=== PATIENT | female | born 1955 | race Caucasian/White ===

== ENCOUNTER 2020-09-13 10:43 | Outpatient (REF) | payer MEDICAID, SELFPAY ==
--- NOTE | 2020-09-13 09:30 | PAPFT_PTH ---
PATIENT: Snehal Sevilla LOC: [facility]#:[id number] AGE/SX: 65/F ROOM: RE09/13/[address]: Miriam Arthur : 1955 BED: DIS: 09/13/2020 SPEC #: [id number] RECD: 09/14/20 12:00 STATUS: DALILA REIbis #: [id number] EBONI: 09/13/20 09:[address]: Miriam Arthur DEPT: [facility] Cytology RECD BY: Sepideh Nguyen Tissues: 1 - CX/ENDOCX FOR PAP SMEARS Procedures: PAP THIN PREP/[facility] Screening HPV DNA PROBE Comments: [id number]
== END 2020-09-13 11:03 ==
LOC: NCHCN 10:43
PROVIDERS: PCP Registered Nurse; Visit Provider Registered Nurse
DX: Z12.4 Encounter for screening for malignant neoplasm of cervix (principal); Z11.51 Encounter for screening for human papillomavirus (HPV)
CPT/HCPCS: 88142; 87624

== ENCOUNTER 2021-11-15 15:17 | Outpatient (REF) | payer MEDICARE, MEDICAID, SELFPAY ==
[2021-11-15 21:07] LABS: HCT 43.2 % (36.0-46.0); HGB 13.8 g/dL (11.2-15.7); MCH 29.9 pg (27.0-33.0); MCHC 31.9 % (32.0-36.0); MCV 93.5 fL (80-95); MPV 10.4 fL (8.0-11.0); Platelet Count 241 10^3/uL (130-400); RBC 4.62 10^6/uL (3.93-5.22); RDW 13.3 % (11.7-14.6); RDW-SD 45.4 fL
[2021-11-15 21:16] LABS: ALT 64 U/L (14-59); AST 40 U/L (15-37); Albumin 3.8 g/dL (3.4-5.0); Alkaline Phosphatase 130 U/L (46-116); Anion Gap 6.6 mmol/L (3-11); BUN 9 mg/dL (7-18); Bilirubin, Total 0.5 mg/dL (0.2-1.0); CO2 29.4 mmol/L (21.0-32.0); CREATININE 0.8 mg/dL (0.55-1.02); Calcium 8.5 mg/dL (8.5-10.1); Calculated LDL 73 mg/dL (<100); Chloride 107 mmol/L (98-107); Cholesterol 154 mg/dL (<200); Glucose 105 mg/dL (74-106); HDL Cholesterol 62 mg/dL (40-60); Magnesium 2.2 mg/dL (1.8-2.4); Sodium 143 mmol/L (136-145); TSH 1.87 uIU/mL (0.36-3.74); Total Protein 6.6 g/dL (6.4-8.2); Triglyceride 97 mg/dL (<150)
[2021-11-15 21:30] LABS: Hemoglobin A1C 5.2 % (<5.7)
== END 2021-11-15 15:18 | disposition home or self-care (01) ==
LOC: NCHCN 15:17
PROVIDERS: PCP Registered Nurse; Visit Provider Registered Nurse
DX: R07.9 Chest pain, unspecified (principal); Z83.3 Family history of diabetes mellitus; Z13.220 Encounter for screening for lipoid disorders; Z13.228 Encounter for screening for other metabolic disorders
CPT/HCPCS: 80053; 80061; 85027; 83036; 83735; 84443

== ENCOUNTER 2021-12-10 14:43 | Outpatient (REF) | payer MEDICARE, MEDICAID, SELFPAY ==
[2021-12-10 15:47] LABS: ALT 81 U/L (14-59); AST 49 U/L (15-37); Albumin 4.1 g/dL (3.4-5.0); Alkaline Phosphatase 144 U/L (46-116); Bilirubin, Direct 0.2 mg/dL (0.0-0.2); Bilirubin, Total 0.6 mg/dL (0.2-1.0); Total Protein 7.1 g/dL (6.4-8.2)
[2021-12-11 10:46] LABS: Hepatitis B Surface Ag Negative (Negative)
[2021-12-11 10:53] LABS: HBs Antibody, Quant 12.9 mIU/mL (See Note); Hepatitis B Surface Ab Positive (See Note)
[2021-12-11 11:08] LABS: Hepatitis C Ab w Rflx HCV PCR Negative (Negative)
[2021-12-11 11:19] LABS: Hep B Core Antibody Negative (Negative)
== END 2021-12-10 14:44 | disposition home or self-care (01) ==
LOC: NCHCN 14:43
PROVIDERS: PCP Registered Nurse; Visit Provider Registered Nurse
DX: R79.89 Other specified abnormal findings of blood chemistry (principal)
CPT/HCPCS: 80076; 86704; 86706; 86803; 87340

== ENCOUNTER 2022-11-28 17:37 | Outpatient (REF) | payer MEDICARE, MEDICAID, SELFPAY ==
[2022-11-28 15:40] LABS: ALT 130 U/L (14-59); AST 109 U/L (15-37); Alkaline Phosphatase 153 U/L (46-116); Anion Gap 6.1 mmol/L (3-11); BUN 11 mg/dL (7-18); Bilirubin, Total 0.7 mg/dL (0.2-1.0); CO2 28.9 mmol/L (21.0-32.0); CREATININE 0.7 mg/dL (0.55-1.02); Calcium 8.8 mg/dL (8.5-10.1); Chloride 105 mmol/L (98-107); Estimated GFR 95.32 (mL/min/1.73m2); Glucose 87 mg/dL (74-106); Potassium 4.7 mmol/L (3.5-5.1); Sodium 140 mmol/L (136-145); Total Protein 7.8 g/dL (6.4-8.2)
== END 2022-11-28 17:38 | disposition home or self-care (01) ==
LOC: NCHCN 17:37
PROVIDERS: PCP Registered Nurse; Visit Provider Registered Nurse
DX: R79.89 Other specified abnormal findings of blood chemistry (principal); K21.9 Gastro-esophageal reflux disease without esophagitis; F17.210 Nicotine dependence, cigarettes, uncomplicated; J44.9 Chronic obstructive pulmonary disease, unspecified; G45.9 Transient cerebral ischemic attack, unspecified
CPT/HCPCS: 80053

== ENCOUNTER 2022-12-09 12:52 | Outpatient (REF) | payer MEDICARE, MEDICAID, SELFPAY ==
[2022-12-09 15:00] LABS: HCT 42.7 % (36.0-46.0); HGB 13.7 g/dL (11.2-15.7); MCH 30.4 pg (27.0-33.0); MCHC 32.1 % (32.0-36.0); MCV 95 fL (80-95); MPV 10.4 fL (8.0-11.0); Platelet Count 191 10^3/uL (130-400); RDW 13.5 % (11.7-14.6); RDW-SD 47.6 fL; WBC 6.84 10^3/uL (4.4-10.8)
[2022-12-09 15:24] LABS: Iron 98 ug/dL (50-170); Total Iron Binding Capacity 351 ug/dL (250-450)
[2022-12-11 19:21] LABS: Ferritin 41 ng/mL (10-291)
== END 2022-12-09 12:53 | disposition home or self-care (01) ==
LOC: NCHCN 12:52
PROVIDERS: PCP Registered Nurse; Visit Provider Registered Nurse
DX: R79.89 Other specified abnormal findings of blood chemistry (principal); Z13.0 Encounter for screening for diseases of the blood and blood-forming organs and certain disorders involving the immune mechanism
CPT/HCPCS: 85027; 82728; 83540; 83550

== ENCOUNTER 2023-01-13 15:41 | Outpatient (REF) | payer MEDICARE, MEDICAID, SELFPAY ==
[2023-01-13 15:03] LABS: ALT 32 U/L (14-59); AST 33 U/L (15-37); Albumin 3.9 g/dL (3.4-5.0); Alkaline Phosphatase 116 U/L (46-116); Anion Gap 5.8 mmol/L (3-11); BUN 8 mg/dL (7-18); Bilirubin, Total 0.6 mg/dL (0.2-1.0); CO2 29.2 mmol/L (21.0-32.0); CREATININE 0.8 mg/dL (0.55-1.02); Calcium 9.1 mg/dL (8.5-10.1); Chloride 102 mmol/L (98-107); Estimated GFR 81.21 (mL/min/1.73m2); Glucose 95 mg/dL (74-106); Potassium 4.1 mmol/L (3.5-5.1); Sodium 137 mmol/L (136-145); Total Protein 7.4 g/dL (6.4-8.2)
[2023-01-14 09:36] LABS: IgG 1231 mg/dL (610-1616)
[2023-01-14 21:56] LABS: Mitochondrial Ab, M2 <0.1 U
[2023-01-15 13:04] LABS: Smooth Muscle Ab Screen Negative (Negative)
[2023-01-15 17:45] LABS: Liver/Kidney Microsome Type 1 <5.0 U
== END 2023-01-13 15:42 | disposition home or self-care (01) ==
LOC: NCHCN 15:41
PROVIDERS: PCP Registered Nurse; Visit Provider Registered Nurse
DX: R79.89 Other specified abnormal findings of blood chemistry (principal); Z01.84 Encounter for antibody response examination
CPT/HCPCS: 80053; 82784; 83516; 86255

== ENCOUNTER 2023-02-04 18:33 | Outpatient (REF) | payer MEDICARE, MEDICAID, SELFPAY ==
[2023-02-04 15:40] LABS: Abs Immature Grans 0.03 10^3/uL (0.0-0.06); Absolute Basophil Count 0.03 10^3/uL (0.0-0.2); Absolute Eosinophil Count 0.13 10^3/uL (0.0-0.7); Absolute Lymphocyte Count 1.66 10^3/uL (1.2-3.4); Absolute Monocyte Count 0.54 10^3/uL (0.1-0.8); Absolute Neutrophil Count 4.22 10^3/uL (1.2-6.7); Basophils % 0.5; HGB 13.3 g/dL (11.2-15.7); Immature Grans % 0.5; Lymphocytes % 25.1; MCH 31.1 pg (27.0-33.0); MCHC 33.3 % (32.0-36.0); MCV 94 fL (80-95); MPV 10.4 fL (8.0-11.0); Monocytes % 8.2; Neutrophils % 63.7; Platelet Count 173 10^3/uL (130-400); RBC 4.27 10^6/uL (3.93-5.22); RDW 13.3 % (11.7-14.6); RDW-SD 44.8 fL; WBC 6.61 10^3/uL (4.4-10.8)
[2023-02-04 15:42] LABS: ESR 9 mm/hr (0-30)
[2023-02-04 16:02] LABS: C-Reactive Protein 0.81 mg/dL (0.0-0.3)
[2023-02-04 22:01] LABS: Rheumatoid Factor <8.6 IU/mL (<12.0)
[2023-02-05 10:40] LABS: Cyclic Citrullinated Peptide <2.5 U/mL (<5.0)
[2023-02-06 14:35] LABS: ANA Interpretation Positive (Negative); ANA Titer Pattern 1:320 Homogeneous
== END 2023-02-04 18:34 | disposition home or self-care (01) ==
LOC: NCHCN 18:33
PROVIDERS: PCP Registered Nurse; Visit Provider Registered Nurse
DX: M25.532 Pain in left wrist (principal); R79.82 Elevated C-reactive protein (CRP); R76.0 Raised antibody titer
CPT/HCPCS: 85652; 86200; 85025; 86038; 86140; 86431

== ENCOUNTER 2023-03-30 18:13 | Outpatient (REF) | payer MEDICARE, MEDICAID, SELFPAY ==
[2023-03-30 15:01] LABS: Absolute Basophil Count 0.06 10^3/uL (0.0-0.2); Absolute Lymphocyte Count 2.11 10^3/uL (1.2-3.4); Absolute Monocyte Count 0.81 10^3/uL (0.1-0.8); Absolute Neutrophil Count 5.54 10^3/uL (1.2-6.7); Basophils % 0.7; Eosinophils % 1.1; HCT 41.2 % (36.0-46.0); HGB 13.3 g/dL (11.2-15.7); Immature Grans % 1.1; Lymphocytes % 24.2; MCHC 32.3 % (32.0-36.0); MCV 93 fL (80-95); MPV 9.6 fL (8.0-11.0); Monocytes % 9.3; Neutrophils % 63.6; Platelet Count 245 10^3/uL (130-400); RBC 4.44 10^6/uL (3.93-5.22); RDW 13.2 % (11.7-14.6); RDW-SD 45.3 fL; WBC 8.72 10^3/uL (4.4-10.8)
[2023-03-30 15:05] LABS: ESR 11 mm/hr (0-30)
[2023-03-30 15:13] LABS: Bilirubin Negative (Negative); Blood Negative (Negative); Clarity Clear (Clear); Glucose Negative (Negative); Ketones Negative (Negative); Leukocyte Esterase Negative (Negative); Nitrite Negative (Negative); Urobilinogen 0.2 mg/dL (Up to 0.2)
[2023-03-30 16:06] LABS: ALT 21 U/L (14-59); AST 20 U/L (15-37); Albumin 3.6 g/dL (3.4-5.0); Alkaline Phosphatase 92 U/L (46-116); Anion Gap 9.1 mmol/L (3-11); BUN 8 mg/dL (7-18); Bilirubin, Total 0.5 mg/dL (0.2-1.0); CO2 26.9 mmol/L (21.0-32.0); CREATININE 0.9 mg/dL (0.55-1.02); Calcium 8.9 mg/dL (8.5-10.1); Calculated LDL 106 mg/dL (<100); Chloride 103 mmol/L (98-107); Cholesterol 192 mg/dL (<200); Estimated GFR 70.07 (mL/min/1.73m2); Glucose 104 mg/dL (74-106); HDL Cholesterol 70 mg/dL (40-60); Potassium 4.3 mmol/L (3.5-5.1); Sodium 139 mmol/L (136-145); TSH (W/Ref FT4) 2.55 uIU/mL (0.36-3.74); Total Protein 7.1 g/dL (6.4-8.2); Triglyceride 83 mg/dL (<150)
[2023-03-30 16:44] LABS: COMMENT (LAB VIEW ONLY) < 13.00 mg/dL; PROTEIN < 6.0 mg/dL
[2023-03-30 17:08] LABS: C-Reactive Protein 0.54 mg/dL (0.0-0.3)
[2023-03-31 04:14] LABS: Thyroglobulin Antibody <15 U/mL (<=60); Thyroperoxidase Antibody <28 U/mL (<=60)
[2023-03-31 09:26] LABS: C3 Complement 123 mg/dL (81-157); C4 Complement 31 mg/dL (13-39)
[2023-03-31 10:38] LABS: Lyme Ab w Rflx to Lyme Confirm Negative (Negative)
[2023-03-31 12:28] LABS: dsDNA Ab, IgG 23.4 IU/mL (<30.0)
[2023-03-31 16:08] LABS: RNP Ab, IgG 21.8 Units (<20.0); SS-A Antibody 25.3 Units (<20.0); SS-B (La) Ab, IgG 6.8 Units (<20.0); Sm (Smith) Ab, IgG 1.9 Units (<20.0)
== END 2023-03-30 18:14 | disposition home or self-care (01) ==
LOC: LBN 18:13
PROVIDERS: PCP Registered Nurse; Visit Provider Student in an Organized Health Care Education/Training Program
DX: M06.00 Rheumatoid arthritis without rheumatoid factor, unspecified site (principal); R53.81 Other malaise; R53.83 Other fatigue; R76.8 Other specified abnormal immunological findings in serum
CPT/HCPCS: 80053; 80061; 85652; 86376; 81003; 82565; 84156; 84443; 84550; 85025; 86140; 86160; 86225; 86235; 86618

== ENCOUNTER 2023-07-20 15:07 | Outpatient (REF) | payer MEDICARE, MEDICAID, SELFPAY ==
[2023-07-20 16:55] LABS: Abs Immature Grans 0.03 10^3/uL (0.0-0.06); Absolute Basophil Count 0.06 10^3/uL (0.0-0.2); Absolute Eosinophil Count 0.09 10^3/uL (0.0-0.7); Absolute Lymphocyte Count 2.41 10^3/uL (1.2-3.4); Absolute Monocyte Count 0.46 10^3/uL (0.1-0.8); Basophils % 0.8; Eosinophils % 1.1; HCT 42.1 % (36.0-46.0); HGB 13.4 g/dL (11.2-15.7); Immature Grans % 0.4; Lymphocytes % 30.7; MCH 29.8 pg (27.0-33.0); MCHC 31.8 % (32.0-36.0); MCV 94 fL (80-95); MPV 10.3 fL (8.0-11.0); Monocytes % 5.9; Neutrophils % 61.1; Platelet Count 237 10^3/uL (130-400); RDW 14.2 % (11.7-14.6); RDW-SD 48.9 fL; WBC 7.85 10^3/uL (4.4-10.8)
[2023-07-20 17:33] LABS: ALT 26 U/L (14-59); AST 35 U/L (15-37); Albumin 4.2 g/dL (3.4-5.0); Alkaline Phosphatase 84 U/L (46-116); Anion Gap 8.1 mmol/L (3-11); BUN 8 mg/dL (7-18); Bilirubin, Total 0.5 mg/dL (0.2-1.0); CO2 26.9 mmol/L (21.0-32.0); CREATININE 0.9 mg/dL (0.55-1.02); Calcium 9.3 mg/dL (8.5-10.1); Chloride 103 mmol/L (98-107); Estimated GFR 70.07 (mL/min/1.73m2); Glucose 91 mg/dL (74-106); Potassium 4.5 mmol/L (3.5-5.1); Sodium 138 mmol/L (136-145); Total Protein 7.1 g/dL (6.4-8.2)
== END 2023-07-20 15:08 | disposition home or self-care (01) ==
LOC: LBN 15:07
PROVIDERS: PCP Registered Nurse; Referring Provider Family Medicine; Visit Provider Student in an Organized Health Care Education/Training Program
DX: M06.00 Rheumatoid arthritis without rheumatoid factor, unspecified site (principal); R76.8 Other specified abnormal immunological findings in serum; R06.02 Shortness of breath; Z79.899 Other long term (current) drug therapy
CPT/HCPCS: 80053; 85025

== ENCOUNTER 2023-11-10 09:58 | Outpatient (REF) | payer MEDICARE, MEDICAID, SELFPAY ==
--- OUTSIDE RECORDS SUMMARY | 2023-11-10 10:02 | XMS_ITS | CCD ---
Author Name Unknown Address [address] [place] [address] [phone] Organization Unknown Address [address] [place] [address] [phone] Care Team Providers Care Utility Maintenance Worker Name Role Phone ROBLESISRA PATTERSON [place] Attending Physician [phone] Vital Signs Unknown or Not Available. Allergies Allergy Code Allergy Type Reaction Status No Known Allergies 0 No known allergies Active Procedures Unknown or Not Available. History of Immunizations Unknown or Not Available. Problems Unknown or Not Available. Results Unknown or Not Available. Active Medications Medication Code Dose Units Frequency Route Modificatio n Start Date/Time Atorvastatin Calcium 80MG Oral Tablet 881321 80 MILLIGRAMS BEDTIME ORAL 019 11:30 Prescription Detail TAKE 80 MILLIGRAMS ORAL BEDTIME PRILOSEC 40MG ORAL CAPSULE, DELAYED 0 40 MILLIGRAMS DAILY ORAL 9 11:30 Prescription Detail TAKE 40 MILLIGRAMS ORAL DAILY PROZAC 40MG ORAL CAPSULE 0 40 MILLIGRAMS BEDTIME ORAL 2018 11:30 Prescription Detail TAKE 40 MILLIGRAMS ORAL BEDTIME Medications Administered During Visit Unknown or Not Available. Encounters Encounter Diagnosis Diagnosis Code Start Date Pain in left wrist [id number] 02/04/2023 Social History Smoking Status Code Start Date End Date Current every day smoker [id number] Patient Decision Aids Unknown or Not Available. Discharge Instructions You were admitted to on 02/04/2023 13:06 with a principal diagnosis of Pain in left wrist You were discharged from on 02/04/2023 13:06 Should you have any questions prior to discharge, please contact a member of your healthcare team. If you have left the hospital and have any questions, please contact your primary care physician. Chief Complaint and Reason For Visit Unknown or Not Available. Function Status Unknown or Not Available. Plan of Care Unknown or Not Available. Referral/Transition of Care Unknown or Not Available.
--- OUTSIDE RECORDS SUMMARY | 2023-11-10 10:02 | XMS_ITS | CCD ---
Author Name Unknown Address [address] [place] [address] [phone] Organization Unknown Address [address] [place] [address] [phone] Care Team Providers Care Secretary Bookkeeper Name Role Phone PAOLOKORINA COURTNEY Attending Physician [phone] Vital Signs Vital Sign Value Unit Date/Time Recent/Initial ? BP Systolic 126 mmHg 09/04/2022 12:45 Initial VS BP Diastolic 67 mmHg 09/04/2022 12:45 Initia l VS Respiratory Rate 15 bpm 09/04/2022 12:45 In itial VS Heart Rate 76 bpm 09/04/2022 12:45 Initial VS O2 % BldC Oximetry 94 % 09/04/2022 12:45 Initial VS Allergies Allergy Code Allergy Type Reaction Status No Known Allergies 0 No known allergies Active Procedures Procedure Code Procedure Type Date Colsc Flx w/[place] [address] CPT 09/04/2022 Colonoscopy, Flexible, Proxi mal To Splenic Flexure; w/Bx, Single/Multiple 23363 CPT 09/04/2022 History of Immunizations Unknown or Not Available. Problems Unknown or Not Available. Results Unknown or Not Available. Active Medications Medication Code Dose Units Frequency Route Modificatio n Start Date/Time Atorvastatin Calcium 80MG Oral Tablet 894282 80 MILLIGRAMS BEDTIME ORAL 019 11:30 Prescription [...] Encounters Encounter Diagnosis Diagnosis Code Start Date Encounter for screening for malignant neoplasm o f colon Z1211 09/04/2022 Social History Smoking Status Code Start Date End Date Current every day smoker [id number] Patient Decision Aids Unknown or Not Available. Discharge Instructions You were admitted to [facility] on 09/04/2022 10:01 with a principal diagnosis of Encounter for screening for malignant neoplasm of colon You had the following procedures done:Colsc Flx w/Rmvl Of Tumor Polyp Lesion Snare TqColonoscopy, Flexible, Proximal To Splenic Flexure; w/Bx, Single/Multiple You were discharged from [facility] on 09/04/2022 13:27 Should you have any questions prior to [...]
--- OUTSIDE RECORDS SUMMARY | 2023-11-10 10:02 | XMS_ITS | CCD ---
Author Name Unknown Address [address] [place] [address] [phone] Organization Unknown Address [address] [place] [address] [phone] Care Team Providers Care Lockstitch Topstitcher Name Role Phone ISRA ROBLES Attending Physician [phone] Vital Signs Unknown or Not Available. Allergies Allergy Code Allergy Type Reaction Status No Known Allergies 0 No known allergies Active Procedures Unknown or Not Available. History of Immunizations Unknown or Not Available. Problems Unknown or Not Available. Results Unknown or Not Available. Active Medications Medication Code Dose Units Frequency Route Modificatio n Start Date/Time Atorvastatin Calcium 80MG Oral Tablet 116116 80 MILLIGRAMS BEDTIME ORAL 019 11:30 Prescription [...] Diagnosis Code Start Date Encounter for screening mamm ogram for malignant neoplasm of breast Z1231 01/02/2022 Social History Smoking Status Code Start Date End Date Current every day smoker [id number] Patient Decision Aids Unknown or Not Available. Discharge Instructions You were admitted to [facility] on 01/02/2022 13:41 with a principal diagnosis of Encounter for screening mammogram for malignant neoplasm of breast You were discharged from [facility] on 01/02/2022 13:41 Should you have any questions prior to discharge, please contact a member of your healthcare team. If you have left the hospital and have any questions, please contact your primary care physician. Chief Complaint and Reason For Visit Chief Complaint Date of Onset SCREENING OSTEOPENIA Function Status Unknown or Not Available. Plan of Care Unknown or Not Available. Referral/Transition of Care Unknown or Not Available.
--- OUTSIDE RECORDS SUMMARY | 2023-11-10 10:02 | XMS_ITS | CCD ---
Author Name Unknown Address [address] [place] [address] [phone] Organization Unknown Address [address] [place] [address] [phone] Care Team Providers Care Game Programmer Name Role Phone ISRA ROBLES Attending Physician [phone] Vital Signs Unknown or Not Available. Allergies Allergy Code Allergy Type Reaction Status No Known Allergies 0 No known allergies Active Procedures Unknown or Not Available. History of Immunizations Unknown or Not Available. Problems Unknown or Not Available. Results Unknown or Not Available. Active Medications Medication Code Dose Units Frequency Route Modificatio n Start Date/Time Atorvastatin Calcium 80MG Oral Tablet 403997 80 MILLIGRAMS BEDTIME ORAL 019 11:30 Prescription [...] Date Encounter for screening for malignant neoplasm of respiratory organs Z122 12/25/2022 Social History Smoking Status Code Start Date End Date Current every day smoker [id number] Patient Decision Aids Unknown or Not Available. Discharge Instructions You were admitted to [facility] on 12/25/2022 07:59 with a principal diagnosis of Encounter for screening for malignant neoplasm of respiratory organs You were discharged from [facility] on 12/25/2022 07:59 Should you have any questions prior to discharge, please contact a member of your healthcare team. If you have left the hospital and have any questions, please contact your primary care physician. Chief Complaint and Reason For Visit Chief Complaint Date of Onset SMOKER LDCT Function Status Unknown or Not Available. Plan of Care Unknown or Not Available. Referral/Transition of Care Unknown or Not Available.
--- OUTSIDE RECORDS SUMMARY | 2023-11-10 10:02 | XMS_ITS | CCD ---
Author Name Unknown Address [address] [place] [address] [phone] Organization Unknown Address [address] [place] [address] [phone] Care Team Providers Care Program Developer Name Role Phone ISRA ROBLES Attending Physician [phone] Vital Signs Unknown or Not Available. Allergies Allergy Code Allergy Type Reaction Status No Known Allergies 0 No known allergies Active Procedures Unknown or Not Available. History of Immunizations Unknown or Not Available. Problems Unknown or Not Available. Results Unknown or Not Available. Active Medications Medication Code Dose Units Frequency Route Modificatio n Start Date/Time Atorvastatin Calcium 80MG Oral Tablet 074571 80 MILLIGRAMS BEDTIME ORAL 019 11:30 Prescription [...] Encounters Encounter Diagnosis Diagnosis Code Start Date Blood chemistry abnormal [id number] 022 Social History Smoking Status Code Start Date End Date Current every day smoker [id number] Patient Decision Aids Unknown or Not Available. Discharge Instructions You were admitted to [facility] on 12/17/2021 09:20 with a principal diagnosis of Other specified abnormal findings of blood chemistry You were discharged from [facility] on 12/17/2021 09:20 Should you have any questions prior to discharge, please contact a member of your healthcare team. If you have left the hospital and have any questions, please contact your primary care physician. Chief Complaint and Reason For Visit Chief Complaint Date of Onset ELEVATED LFTs Function Status Unknown or Not Available. Plan of Care Unknown or Not Available. Referral/Transition of Care Unknown or Not Available.
--- OUTSIDE RECORDS SUMMARY | 2023-11-10 10:02 | XMS_ITS | CCD ---
Author Name Unknown Address [address] [place] [address] [phone] Organization Unknown Address [address] [place] [address] [phone] Care Team Providers Care Treasury Assistant Name Role Phone KORINA BOONE Louis Attending Physician [phone] Vital Signs Unknown or Not Available. Allergies Allergy Code Allergy Type Reaction Status No Known Allergies 0 No known allergies Active Procedures Unknown or Not Available. History of Immunizations Unknown or Not Available. Problems Unknown or Not Available. Results ROLANDODOUG TALBOT* - Marine ect Date/Time: 09/02/2022 09:40 Test Name Code Test Result Test Units Test Ref Rang Tier- 24544-4 PRE-OP N/A SARS COV2 RNA: 88318-8 NEGATIVE N/A REFERENCE RANGE: NEGAT Active Medications Medication Code Dose Units Frequency Route Modificatio n Start Date/Time Atorvastatin Calcium 80MG Oral Tablet 589674 80 MILLIGRAMS BEDTIME ORAL 019 11:30 Prescription [...] Encounters Encounter Diagnosis Diagnosis Code Start Date Pre-surgery testing [id number] 09/02/2022 Social History Smoking Status Code Start Date End Date Current every day smoker [id number] Patient Decision Aids Unknown or Not Available. Discharge Instructions You were admitted to [facility] on 09/02/2022 20:08 with a principal diagnosis of Encounter for preprocedural laboratory examination You had the following tests done:ROLANDO MOJICAX* You were discharged from [facility] on 09/02/2022 20:08 Should you have any questions prior to [...]
[2023-11-10 15:40] LABS: Abs Immature Grans 0.04 10^3/uL (0.0-0.06); Absolute Basophil Count 0.05 10^3/uL (0.0-0.2); Absolute Eosinophil Count 0.15 10^3/uL (0.0-0.7); Absolute Lymphocyte Count 1.57 10^3/uL (1.2-3.4); Absolute Monocyte Count 0.49 10^3/uL (0.1-0.8); Basophils % 0.7; Eosinophils % 2.2; HCT 41.1 % (36.0-46.0); HGB 13.5 g/dL (11.2-15.7); Immature Grans % 0.6; Lymphocytes % 22.8; MCH 31.3 pg (27.0-33.0); MCHC 32.8 % (32.0-36.0); MCV 95 fL (80-95); MPV 10.2 fL (8.0-11.0); Monocytes % 7.1; Neutrophils % 66.6; Platelet Count 248 10^3/uL (130-400); RBC 4.32 10^6/uL (3.93-5.22); RDW 14.1 % (11.7-14.6); RDW-SD 48.9 fL
[2023-11-10 15:54] LABS: ALT 32 U/L (14-59); AST 31 U/L (15-37); Albumin 3.8 g/dL (3.4-5.0); Alkaline Phosphatase 74 U/L (46-116); Anion Gap 8.7 mmol/L (3-11); BUN 9 mg/dL (7-18); Bilirubin, Total 0.6 mg/dL (0.2-1.0); CO2 26.3 mmol/L (21.0-32.0); CREATININE 0.9 mg/dL (0.55-1.02); Calcium 9.1 mg/dL (8.5-10.1); Chloride 104 mmol/L (98-107); Estimated GFR 70.07 (mL/min/1.73m2); Glucose 121 mg/dL (74-106); Potassium 4.2 mmol/L (3.5-5.1); Sodium 139 mmol/L (136-145)
== END 2023-11-10 09:59 | disposition home or self-care (01) ==
LOC: LBN 09:58
PROVIDERS: PCP Registered Nurse; Visit Provider Student in an Organized Health Care Education/Training Program
DX: M06.00 Rheumatoid arthritis without rheumatoid factor, unspecified site (principal); R76.8 Other specified abnormal immunological findings in serum; R06.02 Shortness of breath; Z79.899 Other long term (current) drug therapy
CPT/HCPCS: 80053; 85025

== ENCOUNTER 2024-03-14 18:27 | Outpatient (REF) | payer MEDICARE, SELFPAY ==
[2024-03-14 22:15] LABS: Abs Immature Grans 0.03 10^3/uL (0.0-0.06); Absolute Basophil Count 0.04 10^3/uL (0.0-0.2); Absolute Eosinophil Count 0.12 10^3/uL (0.0-0.7); Absolute Lymphocyte Count 2.11 10^3/uL (1.2-3.4); Absolute Monocyte Count 0.33 10^3/uL (0.1-0.8); Absolute Neutrophil Count 4.25 10^3/uL (1.2-6.7); Basophils % 0.6; Eosinophils % 1.7; HCT 40.1 % (36.0-46.0); HGB 13.2 g/dL (11.2-15.7); Immature Grans % 0.4; Lymphocytes % 30.7; MCH 31.6 pg (27.0-33.0); MCHC 32.9 % (32.0-36.0); MCV 96 fL (80-95); MPV 10.4 fL (8.0-11.0); Monocytes % 4.8; Neutrophils % 61.8; Platelet Count 232 10^3/uL (130-400); RBC 4.18 10^6/uL (3.93-5.22); RDW 14.1 % (11.7-14.6); RDW-SD 49.3 fL; WBC 6.88 10^3/uL (4.4-10.8)
[2024-03-14 22:46] LABS: ALT 46 U/L (14-59); AST 34 U/L (15-37); Albumin 3.9 g/dL (3.4-5.0); Alkaline Phosphatase 84 U/L (46-116); Anion Gap 8.6 mmol/L (3-11); BUN 7 mg/dL (7-18); Bilirubin, Total 0.4 mg/dL (0.2-1.0); CO2 27.4 mmol/L (21.0-32.0); CREATININE 0.8 mg/dL (0.55-1.02); Calcium 8.5 mg/dL (8.5-10.1); Chloride 104 mmol/L (98-107); Estimated GFR 80.21 (mL/min/1.73m2); Glucose 112 mg/dL (74-106); Potassium 4.2 mmol/L (3.5-5.1); Sodium 140 mmol/L (136-145); Total Protein 6.8 g/dL (6.4-8.2)
== END 2024-03-14 18:28 | disposition home or self-care (01) ==
LOC: LBN 18:27
PROVIDERS: Student in an Organized Health Care Education/Training Program; PCP Registered Nurse; Visit Provider Family Medicine
DX: M06.00 Rheumatoid arthritis without rheumatoid factor, unspecified site (principal); R71.8 Other abnormality of red blood cells
CPT/HCPCS: 80053; 85025

== ENCOUNTER 2024-05-25 11:18 | Outpatient (REF) | payer MEDICARE, SELFPAY ==
[2024-05-25 14:28] LABS: Abs Immature Grans 0.04 10^3/uL (0.0-0.06); Absolute Basophil Count 0.05 10^3/uL (0.0-0.2); Absolute Eosinophil Count 0.16 10^3/uL (0.0-0.7); Absolute Lymphocyte Count 1.65 10^3/uL (1.2-3.4); Absolute Monocyte Count 0.52 10^3/uL (0.1-0.8); Absolute Neutrophil Count 5.12 10^3/uL (1.2-6.7); Basophils % 0.7 %; Eosinophils % 2.1 %; HCT 39.7 % (36.0-46.0); Immature Grans % 0.5 %; Lymphocytes % 21.9 %; MCH 31.9 pg (27.0-33.0); MCHC 32.7 % (32.0-36.0); MCV 97 fL (80-95); MPV 10.4 fL (8.0-11.0); Monocytes % 6.9 %; Neutrophils % 67.9 %; Platelet Count 221 10^3/uL (130-400); RBC 4.08 10^6/uL (3.93-5.22); RDW 14.1 % (11.7-14.6); RDW-SD 49.9 fL; WBC 7.54 10^3/uL (4.4-10.8)
[2024-05-25 15:06] LABS: ALT 46 U/L (14-59); AST 25 U/L (15-37); Albumin 3.9 g/dL (3.4-5.0); Alkaline Phosphatase 91 U/L (46-116); Anion Gap 6.5 mmol/L (3-11); BUN 6 mg/dL (7-18); Bilirubin, Total 0.53 mg/dL (0.2-1.0); CO2 29.5 mmol/L (21.0-32.0); CREATININE 0.7 mg/dL (0.55-1.02); Chloride 106 mmol/L (98-107); Estimated GFR 94.15 (mL/min/1.73m2); Glucose 118 mg/dL (74-106); Potassium 4.2 mmol/L (3.5-5.1); Sodium 142 mmol/L (136-145); Total Protein 6.8 g/dL (6.4-8.2)
== END 2024-05-25 11:19 | disposition home or self-care (01) ==
LOC: NCHCN 11:18
PROVIDERS: PCP Registered Nurse; Referring Provider Student in an Organized Health Care Education/Training Program; Visit Provider Student in an Organized Health Care Education/Training Program
DX: M06.00 Rheumatoid arthritis without rheumatoid factor, unspecified site (principal); Z79.899 Other long term (current) drug therapy
CPT/HCPCS: 80053; 85025

== ENCOUNTER 2024-08-12 15:26 | Outpatient (REF) | payer MEDICARE, SELFPAY ==
[2024-08-12 21:55] LABS: Abs Immature Grans 0.09 10^3/uL (0.0-0.06); Absolute Basophil Count 0.05 10^3/uL (0.0-0.2); Absolute Eosinophil Count 0.21 10^3/uL (0.0-0.7); Absolute Lymphocyte Count 1.98 10^3/uL (1.2-3.4); Absolute Monocyte Count 0.77 10^3/uL (0.1-0.8); Absolute Neutrophil Count 4.54 10^3/uL (1.2-6.7); Basophils % 0.7 %; Eosinophils % 2.7 %; HCT 39.9 % (36.0-46.0); HGB 13.1 g/dL (11.2-15.7); Immature Grans % 1.2 %; Lymphocytes % 25.9 %; MCH 31.3 pg (27.0-33.0); MCHC 32.8 % (32.0-36.0); MCV 96 fL (80-95); MPV 10.4 fL (8.0-11.0); Monocytes % 10.1 %; Neutrophils % 59.4 %; Platelet Count 207 10^3/uL (130-400); RBC 4.18 10^6/uL (3.93-5.22); RDW 14.2 % (11.7-14.6); RDW-SD 48.1 fL; WBC 7.64 10^3/uL (4.4-10.8)
[2024-08-12 22:16] LABS: ALT 26 U/L (14-59); AST 22 U/L (15-37); Albumin 4.1 g/dL (3.4-5.0); Alkaline Phosphatase 94 U/L (46-116); Anion Gap 5.2 mmol/L (3-11); BUN 11 mg/dL (7-18); CO2 29.8 mmol/L (21.0-32.0); CREATININE 0.8 mg/dL (0.55-1.02); Calcium 8.9 mg/dL (8.5-10.1); Chloride 103 mmol/L (98-107); Estimated GFR 80.21 (mL/min/1.73m2); Glucose 98 mg/dL (74-106); Potassium 4.6 mmol/L (3.5-5.1); Sodium 138 mmol/L (136-145)
== END 2024-08-12 15:27 | disposition home or self-care (01) ==
LOC: NCHCN 15:26
PROVIDERS: Student in an Organized Health Care Education/Training Program; PCP Registered Nurse; Visit Provider Family Medicine
DX: M06.0A Rheumatoid arthritis without rheumatoid factor, other specified site (principal)
CPT/HCPCS: 80053; 85025

== ENCOUNTER 2025-10-19 16:28 | Outpatient (REF) | payer MEDICARE, SELFPAY ==
[2025-10-19 16:51] LABS: Abs Immature Grans 0.05 10^3/uL (0.0-0.06); HCT 39.9 % (36.0-46.0); HGB 13.1 g/dL (11.2-15.7); Immature Grans % 0.5 %; MCH 31.3 pg (27.0-33.0); MCHC 32.8 % (32.0-36.0); MCV 96 fL (80-95); MPV 10.4 fL (8.0-11.0); Platelet Count 238 10^3/uL (130-400); RBC 4.18 10^6/uL (3.93-5.22); RDW 14.2 % (11.7-14.6); RDW-SD 48.6 fL; WBC 9.16 10^3/uL (4.4-10.8)
[2025-10-19 17:08] LABS: ALT 12 U/L (10-49); AST 19 U/L (<34); Albumin 4.3 g/dL (3.4-5.0); Alkaline Phosphatase 95 U/L (46-116); Anion Gap 6.8 mmol/L (3-11); BUN 8 mg/dL (9-23); Bilirubin, Total 0.40 mg/dL (0.2-1.2); CO2 28.2 mmol/L (20.0-31.0); Calcium 9.3 mg/dL (8.3-10.6); Chloride 106 mmol/L (98-107); Glucose 83 mg/dL (74-106); Potassium 4.4 mmol/L (3.5-5.1); Sodium 141 mmol/L (136-145); Total Protein 6.7 g/dL (5.7-8.2)
== END 2025-10-19 16:29 | disposition home or self-care (01) ==
LOC: NCHCN 16:28
PROVIDERS: PCP Registered Nurse; Visit Provider Student in an Organized Health Care Education/Training Program
DX: Z79.899 Other long term (current) drug therapy (principal); R76.81 Abnormal rheumatoid factor and anti-citrullinated protein antibody without rheumatoid arthritis; M06.00 Rheumatoid arthritis without rheumatoid factor, unspecified site
CPT/HCPCS: 80053; 85025